=== PATIENT | female | born 1960 | race Caucasian/White ===

== ENCOUNTER 2016-10-03 14:05 | Outpatient (CLI) | payer MEDICARE, MEDICAID | END 2016-10-03 14:06 | disposition home or self-care (01) | DX: B20 Human immunodeficiency virus [HIV] disease (principal) ==

== ENCOUNTER 2016-10-04 11:58 | Outpatient (CLI) | payer MEDICARE, MEDICAID | END 2016-10-04 11:59 | disposition home or self-care (01) | DX: M16.11 Unilateral primary osteoarthritis, right hip (principal); Z96.642 Presence of left artificial hip joint; M17.12 Unilateral primary osteoarthritis, left knee; M19.071 Primary osteoarthritis, right ankle and foot ==

== ENCOUNTER 2016-12-20 13:00 | Observation (INO) | payer MEDICARE, MEDICAID ==
[2016-12-20] MEDS ORDERED: ASPIRIN CHEW 81 MG TABLET PO STA (13:22)
[2016-12-20] MEDS ORDERED: ASPIRIN CHEW 81 MG TABLET ONE (13:25)
[2016-12-20] MEDS ORDERED: IOPAMIDOL-300 50 ML VIAL IVP ONE (14:51)
[2016-12-20] MEDS ORDERED: SODIUM CHLORIDE FLUSH 0.9% 10 ML SYRINGE IVP PRN (15:22)
[2016-12-20] MEDS: IBUPROFEN 800 MG TABLET PO SCH ×2 (17:25→22:31)
[2016-12-20] MEDS: GABAPENTIN 400 MG CAPSULE PO SCH ×2 (17:26→22:32)
[2016-12-20] MEDS: PROPRANOLOL 10 MG TABLET PO SCH (22:32)
[2016-12-20] MEDS: SODIUM CHLORIDE FLUSH 0.9% 10 ML SYRINGE IVP SCH (22:32)
[2016-12-21] MEDS: PROPRANOLOL 10 MG TABLET PO SCH (06:39)
[2016-12-21] MEDS: SODIUM CHLORIDE FLUSH 0.9% 10 ML SYRINGE IVP SCH (06:39)
[2016-12-21] MEDS ORDERED: VENLAFAXINE ER 37.5 MG CAPSULE PO SCH (09:00)
[2016-12-21] MEDS ORDERED: LEVOTHYROXINE 100 MCG TABLET PO SCH (09:00)
[2016-12-21] MEDS ORDERED: POLYETHYLENE GLYCOL 3350 17 GM PACKET PO SCH (09:00)
[2016-12-21] MEDS ORDERED: ENOXAPARIN 40 MG/0.4 ML SYRINGE SUBQ SCH (09:00)
[2016-12-21] MEDS: GABAPENTIN 400 MG CAPSULE PO SCH (09:15)
[2016-12-21] MEDS: IBUPROFEN 800 MG TABLET PO SCH (09:15)
[2016-12-21] MEDS ORDERED: ASPIRIN CHEW 81 MG TABLET PO SCH (17:28)
== END 2016-12-21 10:31 | disposition home or self-care (01) ==
DX: R07.89 Other chest pain (principal); Z21 Asymptomatic human immunodeficiency virus [HIV] infection status; F32.9 Major depressive disorder, single episode, unspecified; E03.9 Hypothyroidism, unspecified; G89.29 Other chronic pain; J45.909 Unspecified asthma, uncomplicated; F41.9 Anxiety disorder, unspecified; Z82.49 Family history of ischemic heart disease and other diseases of the circulatory system; Z79.1 Long term (current) use of non-steroidal anti-inflammatories (NSAID); Z79.899 Other long term (current) drug therapy
CPT/HCPCS: 36415; 71020; 71275; 80053; 82550; 82553; 83690; 84484; 85025; 85379; 93005; 93010; 93306; 93970; 96372; 99283; 99285; A9270; G0378; J1650; Q9967

== ENCOUNTER 2016-12-27 13:42 | Emergency (ER) | payer MEDICARE, MEDICAID ==
[2016-12-27] MEDS ORDERED: HYDROcod/ACETAM 5/325 MG TABLET ONE (14:07)
[2016-12-27] MEDS ORDERED: HYDROcod/ACETAM 5/325 MG TABLET PO STA (14:07)
[2016-12-27] MEDS ORDERED: TETANUS/DIPHTHERIA/PERTUSSIS 0.5 ML SYRINGE IM ONE ×2 (14:26→14:34)
== END 2016-12-27 15:12 | disposition home or self-care (01) ==
DX: S62.325A Displaced fracture of shaft of fourth metacarpal bone, left hand, initial encounter for closed fracture (principal); W01.0XXA Fall on same level from slipping, tripping and stumbling without subsequent striking against object, initial encounter; Y92.014 Private driveway to single-family (private) house as the place of occurrence of the external cause; Z23 Encounter for immunization; R03.0 Elevated blood-pressure reading, without diagnosis of hypertension; J45.909 Unspecified asthma, uncomplicated; E03.9 Hypothyroidism, unspecified
CPT/HCPCS: 29125; 73130; 90471; 90715; 99283; A9270

== ENCOUNTER 2017-04-05 12:05 | Emergency (ER) | payer MEDICARE, MEDICAID ==
--- NOTE | 2017-04-05 14:10 | ED Physician Documentation ---
PD HPI LOWER EXT INJURY - Stated complaint Stated Complaint: RT HIP/GROIN PX - Chief complaint Chief Complaint: Ext Problem - History obtained from History obtained from: Patient - History of Present Illness PD HPI LOW EXT INJURY LOCATION: Right, Hip (Had L hip replaced remotely. 2 days ago twisted and felt a pull in the R groin and diff walking since. No fevers. 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 - Present Medications Home Medications: Ambulatory Orders Medication Instructions Recorded Confirmed Atazanavir Sulfate [Reyataz] 400 mg PO QPM 04/23/14 04/05/17 Emtricitabine/Tenofovir [Truvada 1 tab PO QPM 04/23/14 04/05/17 200 mg-300 mg Tablet] Gabapentin 1,200 mg PO 1000,1600,2200 04/23/14 04/05/17 Levothyroxine [Synthroid] 100 mcg PO DAILY 04/23/14 04/05/17 Ibuprofen 800 mg PO 1000,1600,2200 12/20/16 04/05/17 Propranolol [Inderal] 10 mg PO TID PRN 12/20/16 04/05/17 Venlafaxine ER [Effexor ER] 37.5 mg PO DAILY 12/20/16 04/05/17 Oxycodone HCl/Acetaminophen 1 - 2 tab PO Q4H PRN #15 tablet 04/05/17 [Percocet 5-325 mg Tablet] - Allergies Allergies/Adverse Reactions: Allergies Allergy/AdvReac Type Severity Reaction Status Date / Time No Known Drug Allergies Allergy Verified 12/27/16 13:45 - Social History Does the pt smoke?: No Smoking Status: Never smoker Does the pt drink ETOH?: Yes Does the pt have substance abuse?: No - Immunizations Immunizations are current?: Yes Immunizations: TDAP >10years/unknown PD ED PE NORMAL - Vitals Vital signs reviewed: Yes - General General: Alert and oriented X 3, No acute distress - Back Back: Other (Right hip is nontender laterally, nontender anteriorly, she has some pain with internal rotation especially but is able to flex and extend it without too much pain.) - Neuro Neuro: Alert and oriented X 3, Normal speech - Psych Psych: Normal mood, Normal affect Results - Vitals Vitals: Vital Signs - 24 hr 04/05/17 04/05/17 12:15 14:27 Temperature 35.9 C L Heart Rate 71 71 Respiratory 18 20 Rate Blood Pressure 108/76 133/88 H O2 Saturation 100 99 Oxygen O2 Source Room air - Rads (name of study) 2v R hip Radiology: EMP read contemporaneously (moderate degenerative disease of the right hip) PD MEDICAL DECISION MAKING - ED course ED course: Clinically she strained her right groin, there was no fall to suggest fracture. There is nothing on exam to suggest Infection despite her HIV, she says her last CD4 count was in the 600s. There is no fever. Departure - Departure Disposition: 01 Home, Self Care Clinical Impression: Strain of right hip Qualifiers: Encounter type: initial encounter Qualified Code(s): S76.011A - Strain of muscle, fascia and tendon of right hip, initial encounter Condition: Good Record reviewed to determine appropriate education?: Yes Instructions: ED Strain Groin Prescriptions: Oxycodone HCl/Acetaminophen [Percocet 5-325 mg Tablet] 1 - 2 tab PO Q4H PRN #15 tablet PRN Reason: Pain Comments: Follow-up with your doctor tomorrow as scheduled, discuss potentially physical therapy and/or orthopedic referral if not improving. Do not drink or drive while taking narcotic pain medication. Note that many narcotic pain relievers also contain Tylenol/acetaminophen. Please ensure that your total dose of acetaminophen from all sources does not exceed 3 g (3000 mg) per day. You may get constipated while on this medication. Take a stool softener such as Colace twice a day while you are on it. Also add an [id number]-[id number] laxative such as senna or MiraLAX on any day that you do not have a bowel movement. If you received a narcotic pain medication or sedative while in the emergency department, do not drive for the next 24 hours. Discharge Date/Time: 04/05/17 14:27
--- NOTE | 2017-04-05 14:13 | XRAY Preliminary Report ---
Exam: XR Hip w/Pelvis 2-3V RT IMPRESSION: Moderate degenerative joint disease of the right hip. [facility] SITE ID: [id number]
--- NOTE | 2017-04-05 14:16 | XRAY Report ---
EXAM: RIGHT HIP AND PELVIS RADIOGRAPHY EXAM DATE: 04/05/2017 01:01 PM. HISTORY: Pain. COMPARISONS: 10/04/2016. TECHNIQUE: 1 view of the pelvis and 1 view of the hip. FINDINGS: Bones: No definite fracture or other bone lesion. Joints: Left total hip prosthesis in anatomic alignment. No abnormal lucency associated with the pros thesis. Moderate right hip joint space narrowing with prominent marginal lipping. Unremarkable SI bobby nts and pubic symphysis. Degenerative and postoperative changes in lower lumbar spine. Soft Tissues: Unremarkable. IMPRESSION: Moderate degenerative joint disease of the right hip. [facility] Referring Provider Line: [phone] SITE ID: [id number]
[2017-04-05 14:28] VITALS: BP 133/88
== END 2017-04-05 14:27 | disposition home or self-care (01) ==
LOC: ED 12:05
DX: S76.011A Strain of muscle, fascia and tendon of right hip, initial encounter (principal); X50.0XXA Overexertion from strenuous movement or load, initial encounter; M16.11 Unilateral primary osteoarthritis, right hip; Z96.642 Presence of left artificial hip joint; J45.909 Unspecified asthma, uncomplicated; E03.9 Hypothyroidism, unspecified; M19.90 Unspecified osteoarthritis, unspecified site
CPT/HCPCS: 99282; 99283

== ENCOUNTER 2017-04-27 13:34 | Outpatient (CLI) | payer MEDICARE, MEDICAID ==
[2017-04-27] MEDS ORDERED: GADOPENTETATE DIMEGLUMINE 5 ML VIAL IVP ONE (14:26)
[2017-04-27] MEDS ORDERED: IOTHALAMATE MEGLUMINE 50 ML VIAL IVP ONE (14:26)
[2017-04-27] MEDS ORDERED: methylPREDNISolone ACETATE 80 MG/ML VIAL IM ONE (14:26)
[2017-04-27] MEDS ORDERED: BUFFERED LIDOCAINE 10 ML SYRINGE IU ONE (14:26)
[2017-04-27] MEDS ORDERED: LIDOCAINE 1% 50 ML MDV SUBQ ONE (14:26)
--- NOTE | 2017-04-27 15:44 | XRAY Report ---
FLUOROSCOPICALLY-GUIDED RIGHT HIP ARTHROGRAM WITH STEROIDS: 04/27/2017 INDICATION: Right pain. FINDINGS: Following obtaining informed consent, the patient's right hip was prepped and draped in th e usual sterile fashion. The skin and soft tissues were anesthetized with lidocaine. A spinal needl e was inserted into the right hip joint, and following confirmation of needle positioning, 1 mL of 0 mg/mL Depo-Medrol was injected intraarticularly, followed by a combination of iodinated contrast, dil malissa gadolinium, and lidocaine. The patient tolerated the procedure well. No immediate complications . Spot image reveals no evidence of contrast extravasation. IMPRESSION: SUCCESSFUL RIGHT HIP INJECTION FOR MR ARTHROGRAM WITH STEROIDS. FLUOROSCOPY TIME: 21 seconds; 1 spot image obtained. JOB #: [id number] EXT JOB #:[id number]
--- NOTE | 2017-04-27 19:05 | MRI Report ---
EXAM: RIGHT HIP MRI ARTHROGRAM WITH CONTRAST EXAM DATE: 04/27/2017 03:16 PM. CLINICAL HISTORY: Right hip pain for one month. No injury. COMPARISON: X-ray 04/05/2017. TECHNIQUE: Multiplanar, multisequence T1-weighted and fluid-sensitive, small iywmu-jq-ipzd sequences of the hip and large xeqrv-eg-czgz sequences of the pelvis after an arthrographic injection of dilute gadolinium, dictated under a separate exam. Other: None. FINDINGS: Bones: Left hip arthroplasty with local metallic artifact as expected. Patchy marrow edema on both sides of the right hip. Subarticular cyst formation anterior superior wilder tabulum. No fracture. Right Hip: No acetabular retroversion. Moderate degenerative joint disease with osteophytes on the ac etabulum and femur. Severe cartilage thinning. Moderate joint effusion. Fraying of the acetabular lab rum free edge but no displaced tear. Other Joints: Left hip arthroplasty. Mild degenerative changes of the SI joints and symphysis pubis. Lower lumbar fusion hardware partially visualized. Musculature: Mild diffuse atrophy of the gluteus muscles. Pelvic Cavity: The visualized viscera are unremarkable. No lymphadenopathy. No free fluid in the pelv is. Other: The visualized sciatic nerves are unremarkable. No bursitis. The subcutaneous tissues are unre markable. IMPRESSION: 1. Moderate right hip degenerative joint disease. The patchy marrow edema on both sides of the joint is likely due to underlying degenerative arthropathy and severe cartilage thinning. 2. Left hip arthroplasty in expected position with local metallic artifact. [facility] Referring Provider Line: [phone] SITE ID: [id number]
== END 2017-04-27 13:35 | disposition home or self-care (01) ==
LOC: DI 13:34
PROVIDERS: ATTEND Physician Assistant Medical
DX: M25.551 Pain in right hip (principal); M16.11 Unilateral primary osteoarthritis, right hip; Z96.642 Presence of left artificial hip joint; R10.31 Right lower quadrant pain
CPT/HCPCS: 20610; 73722; 77002; Q9961

== ENCOUNTER 2017-06-29 13:21 | Outpatient (CLI) | payer MEDICARE, MEDICAID ==
[2017-06-29 18:58] LABS: EOSINOPHILS # (AUTO) 0.2 10^3/uL (0.0-0.7); EOSINOPHILS % (AUTO) 4.2 %; HCT - HEMATOCRIT 37.2 % (37.0-47.0); HGB - HEMOGLOBIN 12.3 g/dL (12.0-16.0); LYMPHOCYTES # (AUTO) 1.5 10^3/uL (1.5-3.5); LYMPHOCYTES % (AUTO) 33.4 %; MEAN CORPUSCULAR HEMOGLOBIN 31.8 pg (27.0-31.0); MEAN CORPUSCULAR HGB CONC 33.2 g/dL (32.0-36.0); MEAN CORPUSCULAR VOLUME 95.9 fL (81.0-99.0); MONOCYTES # (AUTO) 0.3 10^3/uL (0.0-1.0); MONOCYTES % (AUTO) 7.4 %; NEUTROPHILS # (AUTO) 2.4 10^3/uL (1.5-6.6); NUCLEATED RED BLOOD CELLS AUTO 0.1 /100WBC; RED BLOOD COUNT 3.88 10^6/uL (4.20-5.40); RED CELL DISTRIBUTION WIDTH 13.6 % (12.0-15.0); UNCORRECTED WHITE BLOOD COUNT 4.4 x10^3/uL; WHITE BLOOD COUNT 4.4 x10^3/uL (4.8-10.8)
[2017-06-29 19:17] LABS: PT - PROTHROMBIN TIME 10.9 secs (9.9-12.6)
[2017-06-29 19:21] LABS: ALBUMIN/GLOBULIN RATIO 1.4 (1.0-2.2); BILIRUBIN,TOTAL 1.4 mg/dL (0.2-1.0); BUN - BLOOD UREA NITROGEN 13 mg/dL (6-20); CALCIUM 9.6 mg/dL (8.5-10.3); CARBON DIOXIDE - CO2 28 mmol/L (21-32); CHLORIDE 103 mmol/L (101-111); CHOL/HDL RATIO 4.7 (<4.4); CHOLESTEROL 268 mg/dL; CREATININE 0.8 mg/dL (0.4-1.0); GFR - MDRD 73 (>89); GLUCOSE 87 mg/dL (70-100); HDL CHOLESTEROL 57 mg/dL; LDL/HDL RATIO 3.2 (<4.4); POTASSIUM 4.6 mmol/L (3.5-5.0); SODIUM 138 mmol/L (135-145); TOTAL PROTEIN 7.3 g/dL (6.7-8.2); TRIGLYCERIDES 139 mg/dL; VLDL CHOLESTEROL 28 mg/dL
[2017-06-29 19:43] LABS: HEMOGLOBIN A1C 0.43 g/dL
[2017-07-05 14:15] LABS: TEST RESULT REPORT
== END 2017-06-29 13:22 | disposition home or self-care (01) ==
LOC: LAB.WCP 13:21
PROVIDERS: ATTEND Orthopaedic Surgery
DX: Z01.818 Encounter for other preprocedural examination (principal); B20 Human immunodeficiency virus [HIV] disease; R73.09 Other abnormal glucose; E78.4 Other hyperlipidemia; Z79.899 Other long term (current) drug therapy; Z51.81 Encounter for therapeutic drug level monitoring; E03.9 Hypothyroidism, unspecified; N39.0 Urinary tract infection, site not specified
CPT/HCPCS: 36415; 80053; 80061; 81599; 83036; 84443; 85025; 85610; 85730; 87536

== ENCOUNTER 2017-07-13 13:21 | Outpatient (CLI) | payer MEDICARE, MEDICAID | END 2017-07-13 13:22 | disposition home or self-care (01) | LOC: LAB.WCP 13:21 | PROVIDERS: ATTEND Orthopaedic Surgery | DX: Z01.818 Encounter for other preprocedural examination (principal); N39.0 Urinary tract infection, site not specified; R73.09 Other abnormal glucose | CPT/HCPCS: 87086 ==

== ENCOUNTER 2017-09-12 12:08 | Emergency (ER) | payer MEDICARE, MEDICAID ==
[2017-09-12 12:40] LABS: BASOPHILS # (AUTO) 0.2 10^3/uL (0.0-0.1); BASOPHILS % (AUTO) 2.2 %; EOSINOPHILS # (AUTO) 0.4 10^3/uL (0.0-0.7); EOSINOPHILS % (AUTO) 4.8 %; HGB - HEMOGLOBIN 12.1 g/dL (12.0-16.0); LYMPHOCYTES % (AUTO) 21.7 %; MEAN CORPUSCULAR HGB CONC 32.4 g/dL (32.0-36.0); MEAN CORPUSCULAR VOLUME 98.6 fL (81.0-99.0); MEAN PLATELET VOLUME 8.2 fL (7.9-10.8); MONOCYTES # (AUTO) 0.7 10^3/uL (0.0-1.0); MONOCYTES % (AUTO) 7.2 %; NEUTROPHILS # (AUTO) 5.9 10^3/uL (1.5-6.6); NEUTROPHILS % (AUTO) 64.1 %; PLT - PLATELET COUNT 433 10^3/uL (130-450); RED BLOOD COUNT 3.79 10^6/uL (4.20-5.40); RED CELL DISTRIBUTION WIDTH 13.8 % (12.0-15.0); WHITE BLOOD COUNT 9.2 x10^3/uL (4.8-10.8)
[2017-09-12 12:46] LABS: BILIRUBIN,TOTAL 1.8 mg/dL (0.2-1.0); CALCIUM 9.3 mg/dL (8.5-10.3); CREATININE 0.7 mg/dL (0.4-1.0); TOTAL PROTEIN 8.1 g/dL (6.7-8.2)
[2017-09-12] MEDS ORDERED: LORazepam 2 MG/ML VIAL IVP STA (13:14)
--- NOTE | 2017-09-12 13:18 | ED Physician Documentation ---
PD HPI DYSPNEA - Stated complaint Stated Complaint: SOA/POST OP COMP - Chief complaint Chief Complaint: Cardiac - History obtained from History obtained from: Patient - History of Present Illness Timing - onset: Other (She 6 days out from a right total hip replacement in [place]. Starting last night she has had episodes of diaphoresis and shortness of breath without chest pain. Her stomach is grumbling a little bit but she thinks that is because she stopped her pain medication. She really does not have any postoperative leg swelling or calf pain.) Review of Systems Ten Systems: 10 systems reviewed and negative Constitutional: reports: Sweats. denies: Fever, Chills Nose: denies: Rhinorrhea / runny nose, Congestion Cardiac: denies: Chest pain / pressure, Palpitations, Pedal edema, Calf pain Respiratory: reports: Dyspnea. 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 - Present Medications Home Medications: Ambulatory Orders Medication Instructions Recorded Confirmed Atazanavir Sulfate [Reyataz] 400 mg PO QPM 04/23/14 09/12/17 Emtricitabine/Tenofovir [Truvada 1 tab PO QPM 04/23/14 09/12/17 200 mg-300 mg Tablet] Gabapentin 1,200 mg PO 1000,1600,2200 04/23/14 09/12/17 Levothyroxine [Synthroid] 100 mcg PO DAILY 04/23/14 09/12/17 Ibuprofen 800 mg PO 1000,1600,2200 12/20/16 09/12/17 Propranolol [Inderal] 10 mg PO TID PRN 12/20/16 09/12/17 Venlafaxine ER [Effexor ER] 37.5 mg PO DAILY 12/20/16 09/12/17 Oxycodone HCl/Acetaminophen 1 - 2 tab PO Q4H PRN #15 tablet 04/05/17 09/12/17 [Percocet 5-325 mg Tablet] LORazepam [Ativan] 0.5 mg PO Q6H PRN #10 tablet 09/12/17 - Allergies Allergies/Adverse Reactions: Allergies Allergy/AdvReac Type Severity Reaction Status Date / Time No Known Drug Allergies Allergy Verified 12/27/16 13:45 - Social History Does the pt smoke?: No Smoking Status: Never smoker Does the pt drink ETOH?: Yes Does the pt have substance abuse?: No - Immunizations Immunizations are current?: Yes Immunizations: TDAP >10years/unknown PD ED PE NORMAL - Vitals Vital signs reviewed: Yes (tachycardic) - General General: Alert and oriented X 3, No acute distress - HEENT HEENT: PERRL, EOMI - Neck Neck: Supple, no meningeal sign, No bony TTP - Cardiac Cardiac: RRR, No murmur, Other (Heart rate is in the high 90s on my examination) - Respiratory Respiratory: No respiratory distress, Clear bilaterally - Abdomen Abdomen: Non tender - Back Back: No CVA TTP, No spinal TTP - Derm Derm: Other (Right hip incision was clean dry and intact and replaced with a similar dressing, done with Dee ARTEAGA.) - Extremities Extremities: No edema, No calf tenderness / cord - Neuro Neuro: Alert and oriented X 3, Normal speech - Psych Psych: Normal mood, Normal affect Results - Vitals Vitals: Vital Signs - 24 hr 09/12/17 09/12/17 09/12/17 12:16 12:19 13:53 Temperature 36.8 C Heart Rate 139 H 86 Respiratory 22 18 Rate Blood Pressure 139/96 H 108/72 O2 Saturation 99 99 09/12/17 14:46 Temperature 36.5 C Heart Rate 89 Respiratory 18 Rate Blood Pressure 119/81 H O2 Saturation 97 Oxygen O2 Source Room air - EKG (time done) 1222 Rate: Rate (enter#) (108) Rhythm: Sinus tachycardia [place]: Normal Intervals: Normal VT Ischemia: Q waves (V4-V6) Computer interpretation: Agree with computer - Labs Labs: Laboratory Tests 09/12/17 09/12/17 09/12/17 12:20 12:20 12:22 WBC 9.2 RBC 3.79 L Hgb 12.1 Hct 37.4 MCV 98.6 MCH 32.0 H MCHC 32.4 RDW 13.8 Plt Count 433 MPV 8.2 Neut # 5.9 Lymph # 2.0 [place] # 0.7 Eos # 0.4 Baso # 0.2 H Absolute Nucleated RBC 0.00 Nucleated RBC % 0.0 Sodium 136 Potassium 3.4 L Chloride 101 Carbon Dioxide 24 Anion Gap 11.0 BUN 9 Creatinine 0.7 Estimated GFR (MDRD) 86 L Glucose 106 H Calcium 9.3 Total Bilirubin 1.8 H AST 34 ALT 21 Alkaline Phosphatase 73 Troponin I < 0.04 Total Protein 8.1 Albumin 4.0 Globulin 4.1 Albumin/Globulin Ratio 1.0 Lipase 16 L - Rads (name of study) CT Chest Radiology: EMP read contemporaneously (no PE) PD MEDICAL DECISION MAKING - ED course ED course: She presents with postoperative dyspnea and sweats which is of course concerning for pulmonary embolism however workup for this was negative, she wondered if it might be anxiety and she did feel much better after small dose of Ativan. Departure - Departure Disposition: 01 Home, Self Care Clinical Impression: Dyspnea Condition: Good Record reviewed to determine appropriate education?: Yes Instructions: ED Dyspnea Shortness of Breath Prescriptions: LORazepam [Ativan] 0.5 mg PO Q6H PRN #10 tablet PRN Reason: Anxiety Comments: Call your doctor to arrange a follow-up appointment, make the next available appointment. In the interim, return anytime if worse or if new symptoms develop. Discharge Date/Time: 09/12/17 14:48
[2017-09-12] MEDS ORDERED: IOPAMIDOL-300 100 ML VIAL ONE (13:32)
[2017-09-12] MEDS ORDERED: IOPAMIDOL-300 100 ML VIAL IVP ONE (13:46)
--- NOTE | 2017-09-12 14:21 | CT Preliminary Report ---
Exam: CT CHEST ANGIO (PE) IMPRESSION: Normal pulmonary CT angiogram. No pulmonary emboli. [facility] SITE ID: [id number]
--- NOTE | 2017-09-12 14:29 | CT Report ---
EXAM: CT ANGIOGRAM CHEST EXAM DATE: 09/12/2017 01:50 PM. CLINICAL HISTORY: Right hip surgery 09/06/2016. Shortness of breath since yesterday. COMPARISON: 12/20/2016. TECHNIQUE: Routine helical imaging was performed through the chest in the pulmonary arterial phase. I V Contrast: 80 mL Isovue 300. Reconstructions: Coronal 3-D MIP reconstructions.Sagittal and coronal. In accordance with CT protocol optimization, one or more of the following dose reduction techniques w ere utilized for this exam: automated exposure control, adjustment of mA and/or KV based on patient s ize, or use of iterative reconstructive technique. FINDINGS: Pulmonary Arteries: Diagnostic quality: Adequate through the segmental arteries. No evidence for acute or chronic pulmona ry emboli. RV/LV is within normal limits. There is no interventricular septal bowing. There is no reflux of cont rast material in the IVC. Lungs/Pleura: No consolidation, nodules, or edema. No effusions or pneumothorax. Mediastinum: Normal. No cardiac enlargement or adenopathy. Thoracic Aorta: Unremarkable. Upper Abdomen: Cholecystectomy. Other: Prior lumbar spine surgery. IMPRESSION: Normal pulmonary CT angiogram. No pulmonary emboli. [facility] Referring Provider Line: [phone] SITE ID: [id number]
[2017-09-12 14:47] VITALS: BP 119/81
== END 2017-09-12 14:48 | disposition home or self-care (01) ==
LOC: ED 12:08
DX: R06.00 Dyspnea, unspecified (principal); E03.9 Hypothyroidism, unspecified; Z96.641 Presence of right artificial hip joint
CPT/HCPCS: 36415; 71275; 80053; 83690; 84484; 85025; 93005; 96374; 99283; 99284; J2060; Q9967

== ENCOUNTER 2017-09-27 08:00 | Outpatient (CLI) | payer MEDICARE, MEDICAID ==
[2017-09-27 19:12] LABS: BASOPHILS # (AUTO) 0.1 10^3/uL (0.0-0.1); BASOPHILS % (AUTO) 1.3 %; EOSINOPHILS # (AUTO) 0.3 10^3/uL (0.0-0.7); EOSINOPHILS % (AUTO) 4.8 %; HGB - HEMOGLOBIN 11.6 g/dL (12.0-16.0); LYMPHOCYTES % (AUTO) 28.6 %; MEAN CORPUSCULAR HEMOGLOBIN 31.6 pg (27.0-31.0); MEAN CORPUSCULAR HGB CONC 33.4 g/dL (32.0-36.0); MEAN CORPUSCULAR VOLUME 94.6 fL (81.0-99.0); MEAN PLATELET VOLUME 7.4 fL (7.9-10.8); MONOCYTES # (AUTO) 0.6 10^3/uL (0.0-1.0); MONOCYTES % (AUTO) 8.4 %; NEUTROPHILS % (AUTO) 56.9 %; PLT - PLATELET COUNT 511 10^3/uL (130-450); RED BLOOD COUNT 3.68 10^6/uL (4.20-5.40); RED CELL DISTRIBUTION WIDTH 13.9 % (12.0-15.0); WHITE BLOOD COUNT 7.1 x10^3/uL (4.8-10.8)
== END 2017-09-27 08:01 | disposition home or self-care (01) ==
LOC: LAB.WCP 08:00
PROVIDERS: ATTEND Family Medicine
DX: D64.9 Anemia, unspecified (principal)
CPT/HCPCS: 36415; 85025